=== PATIENT | female | born 1925 | race Caucasian/White ===

== ENCOUNTER → 2016-09-21 | Outpatient (CLI) | payer MEDICARE, OTHER | LOC: LAB 15:44 | PROVIDERS: ATTEND Family Medicine | DX: Z51.81 Encounter for therapeutic drug level monitoring (principal); Z79.01 Long term (current) use of anticoagulants | CPT/HCPCS: 36415; 85610 ==

== ENCOUNTER → 2016-09-27 | Outpatient (CLI) | payer MEDICARE, OTHER ==
[~2016-09-27] MED LIST: ASCO500C6 PO; ASPI-504 PO; ATOR10TA PO; ATORVASTATIN PO; CELE200C PO; CETI10TA20 PO; CHOL100061 PO; DICL100G13 TOP; DILT120C51 PO; HYDR-3702 PO; HYDR1CAP2 PO; LANS15CA16 PO; LEVO50TA PO; METH1TAB21 PO; MONT10TA21 PO; Metronidazole PO; NITR50CA4 PO; NPB.9O TP; PRAV80TA PO; RANI150T15 PO; SERT100T PO; SERT50TA PO; TOLTA4 PO; WARF2.5T PO; WARF5TAB PO
--- NOTE | 2016-09-27 18:43 | Diagnostic Imaging Report ---
INDICATION: Dyspnea. EXAMINATION: Two-view chest 09/27/2016. Comparison made to 06/25/2016. FINDINGS: Two views of chest. The lungs are hyperinflated. Chronic-appearing changes are seen diffusely throughout both lungs. There is a vague density in the right lung base peripherally near the costophrenic angle not seen on previous imaging. The remaining lungs appear fairly stable. There are no effusions. There is no pneumothorax. Heart and pulmonary vasculature appear stable. IMPRESSION: 1. Vague rounded-appearing density right lung base nonspecific and could be due to focal atelectatic change or very early infiltrate. A nodule is not excluded and a short-term interval followup is recommended. If this finding persists, CT imaging recommended. Remaining chest demonstrates chronic change. Dictated by: Dictated on workstation # [id number]
== END ==
LOC: RAD 14:33
PROVIDERS: ATTEND Family Medicine
DX: R06.00 Dyspnea, unspecified (principal); R91.8 Other nonspecific abnormal finding of lung field
CPT/HCPCS: 71020

== ENCOUNTER → 2016-10-06 | Outpatient (CLI) | payer MEDICARE, OTHER ==
[2016-10-06 13:49] LABS: BASOPHILS % (AUTO) 0 % (0-2); EOSINOPHILS # (AUTO) 0.3 10^3uL; EOSINOPHILS % (AUTO) 5 % (0-4); LYMPHOCYTES # (AUTO) 0.7 X10^3; MEAN CORPUSCULAR HGB CONC 32.8 g/dL (31.0-37.0); MEAN CORPUSCULAR VOLUME 97 FL (80-100); MEAN PLATELET VOLUME 10.8 FL (6.0-9.5); MONOCYTES # (AUTO) 0.7 X10^3; MONOCYTES % (AUTO) 13 % (3-11); NEUTROPHILS # (AUTO) 3.7 X10^3; NEUTROPHILS % (AUTO) 68 % (51-67); PLATELET COUNT 191 10^3uL (150-450); WHITE BLOOD COUNT 5.35 10^3uL (4.0-11.0)
[2016-10-06 14:22] LABS: ANION GAP 12.8 MEQ/L (3-15)
[2016-10-06 14:23] LABS: ALBUMIN 3.9 g/dL (3.4-5.0); CALCULATED IONIZED CALCIUM 3.5 mg/dL (3.8-4.6); TOTAL PROTEIN 8.4 g/dL (6.4-8.5)
[2016-10-06 14:37] LABS: ERYTHROCYTE SEDIMENTATION RT* 48 mm/hr (0-23); MEAN CORPUSCULAR HEMOGLOBIN 31.8 PG (26.0-34.0)
== END ==
LOC: LAB 13:25
PROVIDERS: ATTEND Family Medicine
DX: Z51.81 Encounter for therapeutic drug level monitoring (principal); Z79.01 Long term (current) use of anticoagulants; M35.3 Polymyalgia rheumatica; D50.8 Other iron deficiency anemias; R79.89 Other specified abnormal findings of blood chemistry
CPT/HCPCS: 36415; 80053; 82378; 85025; 85610; 85652

== ENCOUNTER → 2016-10-15 | Outpatient (CLI) | payer MEDICARE, OTHER | LOC: LAB 16:41 | PROVIDERS: ATTEND Family Medicine | DX: Z51.81 Encounter for therapeutic drug level monitoring (principal); Z79.01 Long term (current) use of anticoagulants | CPT/HCPCS: 36415; 85610 ==

== ENCOUNTER → 2016-10-29 | Outpatient (CLI) | payer MEDICARE, OTHER | LOC: LAB 12:18 | PROVIDERS: ATTEND Family Medicine | DX: Z51.81 Encounter for therapeutic drug level monitoring (principal); Z79.01 Long term (current) use of anticoagulants | CPT/HCPCS: 36415; 85610 ==

== ENCOUNTER → 2016-11-22 | Outpatient (CLI) | payer MEDICARE, OTHER ==
[2016-11-22 15:18] LABS: BASOPHILS % (AUTO) 0 % (0-2); EOSINOPHILS # (AUTO) 0.1 10^3uL; EOSINOPHILS % (AUTO) 1 % (0-4); LYMPHOCYTES # (AUTO) 0.9 X10^3; MEAN CORPUSCULAR HGB CONC 34.1 g/dL (31.0-37.0); MEAN CORPUSCULAR VOLUME 93 FL (80-100); MEAN PLATELET VOLUME 11.1 FL (6.0-9.5); MONOCYTES # (AUTO) 0.5 X10^3; MONOCYTES % (AUTO) 8 % (3-11); NEUTROPHILS # (AUTO) 4.8 X10^3; NEUTROPHILS % (AUTO) 77 % (51-67); PLATELET COUNT 175 10^3uL (150-450); WHITE BLOOD COUNT 6.28 10^3uL (4.0-11.0)
[2016-11-22 15:19] LABS: MEAN CORPUSCULAR HEMOGLOBIN 31.6 PG (26.0-34.0)
[2016-11-22 15:46] LABS: ANION GAP 14.8 MEQ/L (3-15); CALCULATED IONIZED CALCIUM 3.7 mg/dL (3.8-4.6); TOTAL PROTEIN 8.1 g/dL (6.4-8.5)
== END ==
LOC: LAB 14:51
PROVIDERS: ATTEND Family Medicine
DX: D50.8 Other iron deficiency anemias (principal); R79.89 Other specified abnormal findings of blood chemistry
CPT/HCPCS: 36415; 80053; 85025

== ENCOUNTER → 2016-11-25 | Outpatient (CLI) | payer MEDICARE, OTHER | LOC: RAD 09:43 | PROVIDERS: ATTEND Family Medicine | DX: R63.4 Abnormal weight loss (principal); R91.1 Solitary pulmonary nodule; J18.8 Other pneumonia, unspecified organism | CPT/HCPCS: 71260; 74178; Q9967 ==

== ENCOUNTER → 2016-12-23 | Outpatient (CLI) | payer MEDICARE, OTHER | LOC: LAB 16:25 | PROVIDERS: ATTEND Family Medicine | DX: Z51.81 Encounter for therapeutic drug level monitoring (principal); Z79.01 Long term (current) use of anticoagulants | CPT/HCPCS: 36415; 85610 ==

== ENCOUNTER 2017-02-10 12:30 | Inpatient (IN) | payer OTHER, MEDICARE ==
[~2017-02-10] VITALS: Ht 147.3 cm; Wt 46.7 kg
[~2017-02-10 12:30] MED LIST changes: -CALC-250 PO; -CETI1TAB61 PO; -CYAN250014 PO; -LEVO125T PO; -WRF5T PO
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
[2017-02-10] MEDS ORDERED: ONDANSETRON 2 MG/ML (Z0FRAN) 2 ML VIAL IV ONE (12:45)
[2017-02-10] MEDS ORDERED: fentaNYL 100 MCG/2 ML VIAL IV ONE (12:45)
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
[2017-02-10 13:03] LABS: BASOPHILS % (AUTO) 0 % (0-2); EOSINOPHILS # (AUTO) 0.1 10^3uL; EOSINOPHILS % (AUTO) 3 % (0-4); LYMPHOCYTES # (AUTO) 0.9 X10^3; MEAN CORPUSCULAR HGB CONC 33.2 g/dL (31.0-37.0); MEAN CORPUSCULAR VOLUME 95 FL (80-100); MEAN PLATELET VOLUME 11.3 FL (6.0-9.5); MONOCYTES # (AUTO) 0.5 X10^3; MONOCYTES % (AUTO) 15 % (3-11); NEUTROPHILS # (AUTO) 1.7 X10^3; NEUTROPHILS % (AUTO) 54 % (51-67); PLATELET COUNT 146 10^3uL (150-450); WHITE BLOOD COUNT 3.17 10^3uL (4.0-11.0)
[2017-02-10 13:09] LABS: MEAN CORPUSCULAR HEMOGLOBIN 31.5 PG (26.0-34.0)
[2017-02-10 13:16] LABS: ALBUMIN 3.8 g/dL (3.4-5.0); ALKALINE PHOSPHATASE 45 U/L (38-126); ANION GAP 10.3 MEQ/L (3-15); BUN/CREATININE RATIO 33 (10-20); CALCULATED IONIZED CALCIUM 3.9 mg/dL (3.8-4.6); CREATINE KINASE 63 U/L (30-135); TOTAL PROTEIN 7.5 g/dL (6.4-8.5)
--- NOTE | 2017-02-10 13:45 | NUR ---
Only one IV ordered per Dr. Morrison.
[2017-02-10] MEDS ORDERED: LIDOCAINE 1% (XYLOCAINE) 20 ML VIAL INJ ONE (14:00)
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
--- NOTE | 2017-02-10 15:28 | Diagnostic Imaging Report ---
INDICATION: Injury to right wrist. TECHNIQUE: AP and lateral views of the right wrist were obtained at 3:04 PM. COMPARISON: Same day at 1:24 PM. FINDINGS: An oblique fracture of the distal radius is again noted with continued volar displacement of the distal fragment by about 7mm with less angulation than was previously seen. The ulna is intact. Extensive degenerative change of the first carpal/metacarpal joint is again noted. IMPRESSION: The distal radial fracture again shows displacement but shows less angulation than before. Underlying chronic findings are also again noted. Dictated by: Dictated on workstation # [id number]
[2017-02-10] MEDS ORDERED: WRF5T PO ×3 (16:32→16:35)
--- NOTE | 2017-02-10 16:56 | Diagnostic Imaging Report ---
INDICATION: Fracture, post reduction. TECHNIQUE: Two views of the right wrist 4:06 p.m. CORRELATION STUDY: Earlier same day. FINDINGS: Cast material has been placed. A a transverse fracture of the distal radius is again demonstrated. There is slight anterior and lateral displacement of the main distal fracture fragment, slightly greater than the width of the cortex. Some impaction or retraction is noted. The severity of anterior dislocation has been improved post reduction. There are markedly advanced degenerative changes at the first carpometacarpal articulation. IMPRESSION: 1. Distal radial fracture with slight lateral and dorsal displacement. However, the severity of the displacement is slightly diminished from previous imaging post reduction. Cast material placed. Dictated by: Dictated on workstation # [id number]
--- NOTE | 2017-02-10 17:00 | NUR ---
Report received from ANGEL RN from ED
--- NOTE | 2017-02-10 17:12 | NUR ---
Admit to room 313 per w/c c belongings - ambulated to bathroom - voided cloudy foul odor yellow urine -UA taken to lab
--- NOTE | 2017-02-10 17:30 | NUR ---
Admission assessment in progress - R arm elevated on 2 pillows "that makes it feel better"
[2017-02-10 17:33] VITALS: BP 157/69
[2017-02-10 17:47] LABS: BILIRUBIN,URINE Negative (Negative); CLARITY,URINE Slightly Cloudy; COLOR,URINE Yellow; GLUCOSE, URINE (UA) Negative (Negative); LEUKOCYTE ESTERASE ,URINE Negative (Negative); UROBILINOGEN,URINE 0.2 mg/dL (0.2-1.0)
[2017-02-10 17:53] LABS: AMPHETAMINE SCREEN, URINE Negative (Negative); CANNABINOID SCREEN, URINE Negative (Negative); METHAMPHETAMINE SCREEN URINE S NEGATIVE (NEGATIVE); OPIATE SCREEN URINE Positive (Negative)
[2017-02-10 17:54] LABS: PROPOXYPHENE STAT NEGATIVE (NEGATIVE)
--- NOTE | 2017-02-10 18:02 | NUR ---
Supper tray served - feeding self using L hand - also using teeth to assist with opening
[2017-02-10] MEDS ORDERED: PROMETHAZINE HCL INJ 12.5 MG in SODIUM CHLORIDE 25 ML IV PRN (18:15)
[2017-02-10] MEDS ORDERED: ACETAMINOPHEN 325 MG TAB (TYLENOL) PO PRN (18:15)
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
[2017-02-10 19:56] VITALS: BP 131/66
[2017-02-10] MEDS ORDERED: LEVO125T PO (20:06)
[2017-02-10] MEDS ORDERED: CYAN250014 PO (20:06)
[2017-02-10] MEDS ORDERED: CALC-250 PO (20:06)
[2017-02-10] MEDS ORDERED: CETI1TAB61 PO (20:06)
--- NOTE | 2017-02-10 20:08 | NUR ---
MED REC COMPLETE--current med list obtained from list provided by patient.
[2017-02-10] MEDS: ASCORBIC ACID 500 MG (VITAMIN C) TABLET PO SCH (21:15)
[2017-02-10] MEDS: DOCUSATE SODIUM 100 MG (COLACE) CAP PO PRN (21:15)
[2017-02-10] MEDS: PRAVASTATIN 20 MG (PRAVACHOL) TABLET PO SCH (21:15)
[2017-02-10] MEDS: oxyCODONE/ACETAMINOPHEN 5MG-325 MG (PERCOCET) TABLET PO PRN (21:15)
[2017-02-10 23:00] VITALS: BP 151/69
[2017-02-10 23:44] VITALS: BP 157/69
[2017-02-11] VITALS (7 sets, daily range): BP systolic 135–158; BP diastolic 60–67
[2017-02-11] MEDS: oxyCODONE/ACETAMINOPHEN 5MG-325 MG (PERCOCET) TABLET PO PRN ×2 (03:01→17:13)
--- NOTE | 2017-02-11 03:05 | NUR ---
Percocet 5 (1) PO given for pain in right ribs/right wrist rated at "6". Pt. watching tv; right arm/hand elevated on pillows; call light and H2O within reach.
[2017-02-11 06:22] LABS: BASOPHILS % (AUTO) 0 % (0-2); EOSINOPHILS # (AUTO) 0.1 10^3uL; EOSINOPHILS % (AUTO) 2 % (0-4); LYMPHOCYTES # (AUTO) 1.1 X10^3; MEAN CORPUSCULAR HGB CONC 33.3 g/dL (31.0-37.0); MEAN CORPUSCULAR VOLUME 94 FL (80-100); MEAN PLATELET VOLUME 11.5 FL (6.0-9.5); MONOCYTES # (AUTO) 0.6 X10^3; MONOCYTES % (AUTO) 14 % (3-11); NEUTROPHILS # (AUTO) 2.6 X10^3; NEUTROPHILS % (AUTO) 59 % (51-67); PLATELET COUNT 131 10^3uL (150-450); WHITE BLOOD COUNT 4.43 10^3uL (4.0-11.0)
[2017-02-11] MEDS: LEVOTHYROXINE 50 MCG (LEVOTHROID) TABLET PO SCH (06:26)
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
[2017-02-11 06:30] LABS: MEAN CORPUSCULAR HEMOGLOBIN 31.4 PG (26.0-34.0)
[2017-02-11 06:44] LABS: ALBUMIN 3.3 g/dL (3.4-5.0); ANION GAP 10.7 MEQ/L (3-15)
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
[2017-02-11] MEDS: DILTIAZEM CD 120 MG (CARDIZEM CD) CAP PO SCH (09:16)
[2017-02-11] MEDS: PANTOPRAZOLE 20 MG (PROTONIX) TABLET PO SCH (09:16)
[2017-02-11] MEDS: MONTELUKAST 10 MG (SINGULAIR) TAB PO SCH (09:16)
[2017-02-11] MEDS: CHOLECALCIFEROL 1000 INT UNITS (VITAMIN D3) TABLET PO SCH (09:17)
[2017-02-11] MEDS: ASCORBIC ACID 500 MG (VITAMIN C) TABLET PO SCH ×2 (09:17→21:07)
[2017-02-11] MEDS: LIDOCAINE (LIDODERM) 5% PATCH TOP SCH (09:17)
[2017-02-11] MEDS: SERTRALINE 100 MG (ZOLOFT) TABLET PO SCH (09:17)
--- NOTE | 2017-02-11 09:30 | NUR ---
At 0800 right fingers noted to be cooler than left fingers. Edema right fingers noted. Patient states isaias wrap is tight. Isaias wrap loosened. Right hand elevated higher. Instructed to keep right elbow below hand and to exercise fingers. At this time right fingers or less edematous and warm. Patient states arm feels better.
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
--- NOTE | 2017-02-11 10:39 | NUR ---
Discussed Pt. with Dr. Garcia. He has talked to Pt. son in law regarding Pt. needing placement upon discharge to ensure her needs are met. SW contacted [facility] and provided them with information on Pt. to review for acceptance.
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
--- NOTE | 2017-02-11 14:44 | NUR ---
Visited with Pt. family friends Abebe and Hanna Herrmann. They have known Pt. for 38 years and help take care of her. Pt. son that lived in [place] is and her grandson lives in [place] and wouldn't be able to make it up here until February. Discussed with Bert discharge plans for Pt. Pt. told them she knows someone that lives in [place] that could come live with her and help take care of her. Abebe planned to contact this lady to see if this was possible. They also planned to talk to [facility] about Pt. going to respite care. They will talk to [facility]. ALENA has also notified [facility] about this possible admission.
--- NOTE | 2017-02-11 16:05 | NUR ---
Neuro checks have remained stable. Pt alert, oriented, follows commands. VSS. Will discontinue neuro checks per prior order.
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
[2017-02-11] MEDS: warFARin 5 MG (COUMADIN) TAB PO SCH (17:12)
--- NOTE | 2017-02-11 17:51 | NUR ---
Pt works with PT this shift. Up to bathroom with staff assist x1 Uses cane. C/o pain at supper. PRN percocet given. SL intact. Sling/splint intact to right wrist.
[2017-02-11] MEDS: PRAVASTATIN 20 MG (PRAVACHOL) TABLET PO SCH (21:08)
[2017-02-12] MEDS: oxyCODONE/ACETAMINOPHEN 5MG-325 MG (PERCOCET) TABLET PO PRN ×4 (01:47→21:18)
[2017-02-12 04:28] VITALS: BP 155/61
[2017-02-12] MEDS: PANTOPRAZOLE 20 MG (PROTONIX) TABLET PO SCH (06:22)
[2017-02-12] MEDS: LEVOTHYROXINE 50 MCG (LEVOTHROID) TABLET PO SCH (06:22)
[2017-02-12] MEDS: MAGNESIUM HYDROXIDE 80MG/ML (MILK OF MAGNESIA) 30 ML UDC PO PRN (06:25)
--- NOTE | 2017-02-12 06:28 | NUR ---
Patient rests in bed throughout night with minimal needs. Percocet given for pain per request. Patient this AM states that she needs a laxative, MOM given. No needs at this time.
[2017-02-12 08:00] VITALS: BP 141/61
[2017-02-12 08:03] VITALS: BP 141/61
[2017-02-12] MEDS: SERTRALINE 100 MG (ZOLOFT) TABLET PO SCH (08:53)
[2017-02-12] MEDS: ASCORBIC ACID 500 MG (VITAMIN C) TABLET PO SCH ×2 (08:53→20:08)
[2017-02-12] MEDS: CHOLECALCIFEROL 1000 INT UNITS (VITAMIN D3) TABLET PO SCH (08:53)
[2017-02-12] MEDS: DILTIAZEM CD 120 MG (CARDIZEM CD) CAP PO SCH (08:53)
[2017-02-12] MEDS: ONDANSETRON 4 MG (ZOFRAN) ORAL DISSOLVE TAB PO PRN (08:53)
[2017-02-12] MEDS: MONTELUKAST 10 MG (SINGULAIR) TAB PO SCH (08:53)
[2017-02-12] MEDS: LIDOCAINE (LIDODERM) 5% PATCH TOP SCH ×2 (08:53→09:00)
--- NOTE | 2017-02-12 08:53 | NUR ---
PRN Percocet given at this time for c/o rib pain rated 5/10. PRN Zofran ODT given at this time for c/o upset stomach. Skin warm, dry, intact. Resprs nonlabored, even on RA. Call light within reach. SL intact. Pt denies other needs.
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
[2017-02-12 15:37] VITALS: BP 118/50
[2017-02-12] MEDS ORDERED: warFARin 2.5 MG (COUMADIN) TAB PO SCH (17:00)
--- NOTE | 2017-02-12 17:04 | NUR ---
PRN Percocet given at this time for c/o R rib pain rated 4/10. Pt denies other needs.
--- NOTE | 2017-02-12 18:44 | NUR ---
Uneventful shift, PRN Percocet given when requested. Skin warm, dry, intact. Resprs nonlabored, even on RA. Call light within reach. Pt ambulates to RR with SBA and walker. Pt does not call for assistance, steady on her feet, but alarms in place for safety. SL intact. Pt denies other needs.
[2017-02-12] MEDS: PRAVASTATIN 20 MG (PRAVACHOL) TABLET PO SCH (20:09)
[2017-02-12] MEDS: POLYETHYLENE GLYCOL 17 GM (MIRALAX) PACKET PO PRN (21:40)
[2017-02-12] MEDS: DOCUSATE SODIUM 100 MG (COLACE) CAP PO PRN (21:40)
[2017-02-13 00:06] VITALS: BP 123/62
[2017-02-13] MEDS: oxyCODONE/ACETAMINOPHEN 5MG-325 MG (PERCOCET) TABLET PO PRN ×3 (03:39→17:52)
[2017-02-13] MEDS: LEVOTHYROXINE 50 MCG (LEVOTHROID) TABLET PO SCH (06:24)
[2017-02-13] MEDS: PANTOPRAZOLE 20 MG (PROTONIX) TABLET PO SCH (06:24)
--- NOTE | 2017-02-13 07:11 | NUR ---
Patient rests in bed throughout night, up with one assistance at times. Percocet given x2 this shift for rib pain. No needs at this time.
[2017-02-13 07:23] VITALS: BP 109/54
[2017-02-13] MEDS: MONTELUKAST 10 MG (SINGULAIR) TAB PO SCH (08:15)
[2017-02-13] MEDS: CHOLECALCIFEROL 1000 INT UNITS (VITAMIN D3) TABLET PO SCH (08:15)
[2017-02-13] MEDS: SERTRALINE 100 MG (ZOLOFT) TABLET PO SCH (08:15)
[2017-02-13] MEDS: DOCUSATE SODIUM 100 MG (COLACE) CAP PO PRN ×2 (08:15→17:50)
[2017-02-13] MEDS: DILTIAZEM CD 120 MG (CARDIZEM CD) CAP PO SCH (08:15)
[2017-02-13] MEDS: ASCORBIC ACID 500 MG (VITAMIN C) TABLET PO SCH ×2 (08:15→20:35)
[2017-02-13] MEDS: MAGNESIUM HYDROXIDE 80MG/ML (MILK OF MAGNESIA) 30 ML UDC PO PRN ×3 (08:16→20:35)
[2017-02-13] MEDS: POLYETHYLENE GLYCOL 17 GM (MIRALAX) PACKET PO PRN (08:16)
[2017-02-13] MEDS: LIDOCAINE (LIDODERM) 5% PATCH TOP SCH (09:21)
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
[2017-02-13 15:20] VITALS: BP 118/57
[2017-02-13] MEDS: warFARin 5 MG (COUMADIN) TAB PO SCH (17:50)
--- NOTE | 2017-02-13 17:52 | NUR ---
PRN Percocet given at this time for c/o R rib pain. Denies other needs.
--- NOTE | 2017-02-13 18:45 | NUR ---
Uneventful shift. Skin warm, dry, intact. Resprs nonlabored, even on RA. Call light within reach. Pt ambulates to RR with SBA and walker. PRN bowel regimen exhausted with no results. Pt requests MOM again at bedtime. Pt states "it usually takes me 3 days on the laxative for it to work". SL intact. Pt denies needs.
[2017-02-13] MEDS: PRAVASTATIN 20 MG (PRAVACHOL) TABLET PO SCH (20:35)
[2017-02-14 00:02] VITALS: BP 140/70
[2017-02-14] MEDS: PANTOPRAZOLE 20 MG (PROTONIX) TABLET PO SCH (06:06)
[2017-02-14] MEDS: MAGNESIUM HYDROXIDE 80MG/ML (MILK OF MAGNESIA) 30 ML UDC PO PRN (06:06)
[2017-02-14] MEDS: LEVOTHYROXINE 50 MCG (LEVOTHROID) TABLET PO SCH (06:06)
[2017-02-14] MEDS: oxyCODONE/ACETAMINOPHEN 5MG-325 MG (PERCOCET) TABLET PO PRN (06:06)
--- NOTE | 2017-02-14 06:36 | NUR ---
Patient still does not have BM this shift. MOM given x2 this shift per request. Percocet given this AM. Patient rests in bed without needs, attempts to get out of bed without assistance. No needs at this time, walks to bathroom with 1 assist and is steady on feet. No needs at this time.
--- NOTE | 2017-02-14 07:35 | NUR ---
Patient resting in bed upon shift assessment. Alert and oriented X3. Reports right wrist pain rated 1/10 on pain scale. Wrist in split and elevated on pillows. Trace edema noted to fingers. Denies SOA or nausea. Respirations even and non-labored on roomair. HR RRR. Updated on plan of care for shift including pain management, activity, and bowel regimen. Call light in reach.
[2017-02-14 08:00] VITALS: BP 133/64
[2017-02-14] MEDS: DILTIAZEM CD 120 MG (CARDIZEM CD) CAP PO SCH (09:03)
[2017-02-14] MEDS: ASCORBIC ACID 500 MG (VITAMIN C) TABLET PO SCH ×2 (09:03→21:09)
[2017-02-14] MEDS: CHOLECALCIFEROL 1000 INT UNITS (VITAMIN D3) TABLET PO SCH (09:03)
[2017-02-14] MEDS: MONTELUKAST 10 MG (SINGULAIR) TAB PO SCH (09:03)
[2017-02-14] MEDS: LIDOCAINE (LIDODERM) 5% PATCH TOP SCH (09:04)
[2017-02-14] MEDS: SERTRALINE 100 MG (ZOLOFT) TABLET PO SCH (09:04)
[2017-02-14] MEDS: ONDANSETRON 4 MG (ZOFRAN) ORAL DISSOLVE TAB PO PRN (09:30)
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
[2017-02-14] MEDS: 0.45% SOD CHLORIDE (1/2 NS) 1,000 ML IV SCH (12:40)
[2017-02-14 16:00] VITALS: BP 136/55
[2017-02-14] MEDS: PRAVASTATIN 20 MG (PRAVACHOL) TABLET PO SCH (21:09)
--- NOTE | 2017-02-15 01:21 | NUR ---
Nurtion for 1800 was not recorded . Addendum: 02/15/17 at 0121 by Rodney Rader RN Amended: Links added.
[2017-02-15] MEDS: LEVOTHYROXINE 50 MCG (LEVOTHROID) TABLET PO SCH (06:30)
[2017-02-15] MEDS: PANTOPRAZOLE 20 MG (PROTONIX) TABLET PO SCH (06:30)
[2017-02-15 08:00] VITALS: BP 176/67
[2017-02-15] MEDS: DILTIAZEM CD 120 MG (CARDIZEM CD) CAP PO SCH (08:44)
[2017-02-15] MEDS: LIDOCAINE (LIDODERM) 5% PATCH TOP SCH (08:44)
[2017-02-15] MEDS: CHOLECALCIFEROL 1000 INT UNITS (VITAMIN D3) TABLET PO SCH (08:44)
[2017-02-15] MEDS: ASCORBIC ACID 500 MG (VITAMIN C) TABLET PO SCH (08:44)
[2017-02-15] MEDS: MONTELUKAST 10 MG (SINGULAIR) TAB PO SCH (08:45)
[2017-02-15] MEDS: SERTRALINE 100 MG (ZOLOFT) TABLET PO SCH (08:45)
[2017-02-15] MEDS: 0.45% SOD CHLORIDE (1/2 NS) 1,000 ML IV SCH (08:46)
--- NOTE | 2017-02-15 09:35 | NUR ---
Pt. has been up to restroom this am, but states she feels dizzy. Returned to bed for breakfast. She states that she has "dizzy spells" and she waits for them to subside. She denies pain this morning. Lidoderm patch applied to R chest over fractured rib. Arm up in sling. Denies needs at this time.
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
--- NOTE | 2017-02-15 12:49 | Progress Note-A/P (E) ---
Progress Note Subjective Subjective feeding self and alert and ready for discharge. Objective VS Vital Signs Date Time Temp Pulse Resp B/P Pulse Ox O2 Delivery O2 Flow Rate FiO2 02/15/17 08:00 97.7 65 18 176/67 97 Room air 02/13/17 15:20 0.00 I&O I & O Cumulative 02/14/17 02/15/17 Cumulative From/Thru 19:00 07:00 02/10/17 12:44 - 02/15/17 06:23 Intake Total 1083 ml 490 ml 5010 ml Output Total 450 ml 3350 ml Balance 1083 ml 40 ml 1660 ml Current Medications Current Medications Magnesium Hydroxide 30 ml 30 ml QID PRN PO Last administered on 02/14/17 06:06 ; Admin Dose 30 ML; Start 02/13/17 at 17:55 Sodium Chloride 1,000 ml @ 50 mls/hr Q20H IV Last administered on 02/15/17 08: 46; Admin Dose 50 MLS/HR; Start 02/14/17 at 11:55 Miscellaneous REMOVE LIDOCAINE PATCH DAILY@21 TOP; Start 02/15/17 at 21:00 General Awake, alert, oriented to person, place, and situation. NAD at present emesis during my visit. HEENT EOMI, PERRL CV RRR, S1 S2 audible Lungs Clear No rales, rhonchi or wheezes Abdomen Soft non distended, no tenderness to palpation, no masses Extremities No edema Integumentary bruises multiple. Neuro No focal motor neuro deficits but painful extremity movement. Musculoskeletal post trauma pain diffuse. post concussion and fractures see radiology reports. Assessment CHRONIC ISSUES * OA: Hold celecoxib and aspirin. Discuss with PCP... likely need to stop these at discharge while on warfarin. * History of DVT: Warfarin * Hypothyroidism: Check TSH. Levothyroxine. * Seasonal Allergies: Montelukast * Depression: Sertraline * HTN: Diltiazem (dose lowered) * GERD: Pantoprazole (sub for lansoprazole) * Bladder Spasms: Hold tolterodine * HLD: Pravastatin (lower dose) * Methenamine for UTI Prophylaxis? Resume at discharge. Plan begiln hydration and monitor osmolar state and sodium potassium levels. Labs, Most Recent- Laboratory Results Past 24 Hrs 02/14/17 23:10: Urine Osmolality [Pending] 02/15/17 06:25: Iron (send out) [Pending], Serum Osmolality [Pending], Thyroid Stimulating Hormone (TSH) 1.40, Total Iron Binding Capacity [Pending], Transferrin % Saturation [Pending] Impressions post concussion and fractures see radiology reports. post concussion and fractures see radiology reports. Assessment CHRONIC ISSUES * OA: Hold celecoxib and aspirin. Discuss with PCP... likely need to stop these at discharge while on warfarin. * History of DVT: Warfarin * Hypothyroidism: Check TSH. Levothyroxine. * Seasonal Allergies: Montelukast * Depression: Sertraline * HTN: Diltiazem (dose lowered) * GERD: Pantoprazole (sub for lansoprazole) * Bladder Spasms: Hold tolterodine * HLD: Pravastatin (lower dose) * Methenamine for UTI Prophylaxis? Resume at discharge. Plan begiln hydration and monitor osmolar state and sodium potassium levels. the intake has improved today plan dismissal in a.m. Assessment CHRONIC ISSUES * OA: Hold celecoxib and aspirin. Discuss with PCP... likely need to stop these at discharge while on warfarin. * History of DVT: Warfarin * Hypothyroidism: Check TSH. Levothyroxine. * Seasonal Allergies: Montelukast * Depression: Sertraline * HTN: Diltiazem (dose lowered) * GERD: Pantoprazole (sub for lansoprazole) * Bladder Spasms: Hold tolterodine * HLD: Pravastatin (lower dose) * Methenamine for UTI Prophylaxis? Resume at discharge. Plan begiln hydration and monitor osmolar state and sodium potassium levels. FRANSICO CURTIS DO February 15, 2017 12:49
[2017-02-15 13:31] LABS: IRON 49 ug/dL (50-170); UNBOUND IRON CONTENT 195 ug/dl (126-382)
[2017-02-15] MEDS ORDERED: DLT120CCR PO (13:35)
[2017-02-15] MEDS ORDERED: MAGN400O7 PO (13:35)
[2017-02-15] MEDS ORDERED: DOCU100C8 PO (13:35)
[2017-02-15] MEDS ORDERED: POLY17PO2 PO (13:35)
--- NOTE | 2017-02-15 13:37 | Discharge Instructions (E) ---
Discharge Instructions Instructions Continue medications as prescribed. Activity Instructions as tolerates- PT/OT Doctor's Appointment Appt Dr. Blackwood in 1 week Discharge Diet: Regular Leonor Valenica APRN February 15, 2017 13:37
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
--- NOTE | 2017-02-15 14:15 | NUR ---
Report given to nurse at [facility].
--- NOTE | 2017-02-15 14:22 | NUR ---
Pt. accepted to [facility] for skilled care. Pt. informed of this and was concerned about getting belongings from home. SW explained [facility] won't be able to take her by her home. ALENA suggested she make a list for her friends Abebe and Hanna. With Pt. permission ALENA contacted Hanna and let her know Pt. would discharge today. Hanna stated she would come see her today and they would get the belongings she wants.
--- NOTE | 2017-02-15 14:35 | NUR ---
Pt. discharged to [facility] at this time via , accompanied by [facility] transport staff. IV has been removed by Raymond Guerin RN. Belongings sent with pt and report has been given.
[2017-02-15] MEDS ORDERED: PATCH REMOVAL TOP SCH (21:00)
[2017-02-15 21:43] LABS: OSMOLALITY SERUM-SEND OUT 284 mOsm/kg (275-300)
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
== END 2017-02-15 14:35 | DRG 563 ==
LOC: EDUNIT# 12:30 → ED 12:39 → MED/SURG 17:07 → OBSVTOIN 02-12 09:00
PROVIDERS: ADMIT Internal Medicine; ATTEND Internal Medicine
PROC: 0PSHXZZ Reposition Right Radius, External Approach (ICD-10-PCS; principal; 2017-02-10)
DX: S52.551A Other extraarticular fracture of lower end of right radius, initial encounter for closed fracture (principal); S22.31XA Fracture of one rib, right side, initial encounter for closed fracture; S06.0X0A Concussion without loss of consciousness, initial encounter; Z66 Do not resuscitate; E03.9 Hypothyroidism, unspecified; I10 Essential (primary) hypertension; K21.9 Gastro-esophageal reflux disease without esophagitis; E78.5 Hyperlipidemia, unspecified; M19.90 Unspecified osteoarthritis, unspecified site; F32.9 Major depressive disorder, single episode, unspecified; V47.0XXA Car driver injured in collision with fixed or stationary object in nontraffic accident, initial encounter; Z79.01 Long term (current) use of anticoagulants; Z86.718 Personal history of other venous thrombosis and embolism; Z85.3 Personal history of malignant neoplasm of breast
CPT/HCPCS: 29125; 36415; 70450; 71020; 71100; 73030; 73100; 73110; 80053; 80069; 80307; 80320; 81003; 82550; 82553; 83540; 83550; 83930; 83935; 84443; 84484; 85025; 85610; 94760; 96374; 96375; 99284; 99285

== ENCOUNTER → 2017-02-10 | Outpatient (CLI) | payer MEDICARE, OTHER ==
[~2017-02-10] MED LIST changes: +CALC-250 PO; +CETI1TAB61 PO; +CYAN250014 PO; +LEVO125T PO; +WRF5T PO
== END ==
LOC: EMS 12:25
PROVIDERS: ATTEND Family Medicine
DX: M25.531 Pain in right wrist (principal); V47.0XXA Car driver injured in collision with fixed or stationary object in nontraffic accident, initial encounter; Y92.481 Parking lot as the place of occurrence of the external cause